=== PATIENT | female | born 1980 | race Caucasian/White ===

== ENCOUNTER → 2021-03-09 13:50 | Outpatient (CLI) | payer BC, SELFPAY ==
[2021-03-16 05:07] LABS: Alternaria tenuis <0.10 kU/L (Class 0); Ash, White <0.10 kU/L (Class 0); Aspergillus fumigatus <0.10 kU/L (Class 0); Bermuda Grass <0.10 kU/L (Class 0); Birch <0.10 kU/L (Class 0); Black Walnut <0.10 kU/L (Class 0); Cat Hair / Dander,Stand 8.43 kU/L (Class IV); Cedar, Mountain <0.10 kU/L (Class 0); Cladosporium herbarum <0.10 kU/L (Class 0); Cockroach, American <0.10 kU/L (Class 0); Cottonwood <0.10 kU/L (Class 0); D farinae Mite 1.82 kU/L (Class III); Dog Epithelia 0.39 kU/L (Class I); Elm, American White <0.10 kU/L (Class 0); Immunoglobulin E 65 IU/mL (6-495); Maple/Box Elder <0.10 kU/L (Class 0); Mulberry, White <0.10 kU/L (Class 0); Oak, White <0.10 kU/L (Class 0); Pecan <0.10 kU/L (Class 0); Penicillium Notatum <0.10 kU/L (Class 0); Pigweed, Rough <0.10 kU/L (Class 0); Ragweed, Short/Common <0.10 kU/L (Class 0); Russian Thistle <0.10 kU/L (Class 0); Sheep Sorrel <0.10 kU/L (Class 0); Sycamore, American <0.10 kU/L (Class 0); Timothy Grass <0.10 kU/L (Class 0)
[2021-03-16 08:01] LABS: Mouse Urine <0.10 kU/L (Class 0)
[2021-03-16 09:13] LABS: Gluten <0.10 kU/L (Class 0); Wheat <0.10 kU/L (Class 0)
== END ==
PROVIDERS: PCP Family Medicine; Referring Provider Otolaryngology; Visit Provider Otolaryngology
DX: T78.40XA Allergy, unspecified, initial encounter (principal)
CPT/HCPCS: 36415; 82785; 86003

== ENCOUNTER 2024-06-23 17:27 | Emergency (ER) | payer OTHER, SELFPAY ==
[2024-06-23 17:28] VITALS: BP 157/107; PULSE 74; RESP 19; TEMP 36.4; O2SAT 97; BMI 18.8
--- NOTE | 2024-06-23 18:08 | EDS_ITS ---
HPI History of Present Illness Chief Complaint: Hypertension Informant: patient Onset/Context/Timing Onset: Weeks Context: Gradual Onset Timing: Intermittent Quality: Dull, aching Location: Neck, left shoulder Worsened by: Nothing Relieved by: Nothing Narrative Narrative: Patient presents with elevated blood pressure, neck pain, and left shoulder pain that has been intermittent for the past 1 to 2 weeks. Patient describes it as dull and aching. Patient states it is over the neck and into her left shoulder. Patient states nothing makes it better and nothing makes it worse. Patient states she is under a lot of stress. Patient states she is going through a divo rce. Patient admits to some mild shortness of breath. Patient denies any nausea or vomiting. Patient states it feels like her ears need to pop. Patient denies any other symptoms. [facility] Medical History HTN (hypertension) Home Medications ?Medication ?Instructions ?Recorded ?Last Taken ?Type propranolol 20 mg tablet 20 mg PO BID 06/23/24 Unknown History Allergy/AdvReac Type Severity Reaction Status Date / Time No Known Allergies Allergy Verified 06/23/24 17:28 Surgical History Previous section Social History household members: children Smoking Status: Never smoker ROS ROS ED Constitutional Constitutional ED: Denies chills or fever(s) Eyes Eyes: Denies blurry vision or change in vision ENT ENT ED: Reports ear pain; Denies rhinorrhea or sore throat Cardiovascular Cardiovascular: Denies chest pain or palpitations Respiratory/Chest Respiratory/Chest: Reports dyspnea; Denies cough Gastrointestinal Gastrointestinal: Denies nausea or vomiting Genitourinary Genitourinary ED: Denies dysuria or hematuria Musculoskeletal Musculoskeletal: Reports neck pain; Denies back pain Integumentary Denies abscess or rash Neurologic Neurologic: Reports headache(s); Denies weakness Allergic/Immunologic Allergic/Immunologic ED: Denies mouth swelling or urticaria EXAM Physical Exam Const Vital Signs: 06/23/24 17:28 06/23/24 17:59 06/23/24 19:28 Temperature 97.6 F L Temperature Source Temporal Pulse Rate 74 77 Respiratory Rate 19 H 11 L Respiratory Effort Normal Non-Labored Respiratory Pattern Normal Blood Pressure 157/107 H 147/97 H Blood Pressure Mean 123 113 Pulse Ox 97 97 Oxygen Delivery Method Room Air Room Air 06/23/24 19:48 Temperature Temperature Source Pulse Rate Respiratory Rate Respiratory Effort Respiratory Pattern Blood Pressure 137/90 H Blood Pressure Mean 105 Pulse Ox Oxygen Delivery Method Positive well nourished and well developed General Appearance ED: well developed and NAD HEENT Reports moist mucous membranes Neck supple and no JVD Resp normal respiratory effort and clear to auscultation bilaterally Cardio regular rate and regular rhythm GI non-tender and non-distended Palpation: soft Extremity normal to inspection Neuro oriented x3, CN's II-XII intact bilaterally and no sensory deficits noted Sensorium / Orientation: alert Motor Exam: strength 5/5 throughout Psych mental status grossly normal MDM MDM MDM Narrative Medical decision making narrative: Differential diagnosis includes cardiac dysrhythmia, cardiac ischemia, anxiety, stress, musculoskeletal pain, and pneumothorax. EKG will be obtained to assess for cardiac dysrhythmia and cardiac ischemia. Chest x-ray will be obtained to assess for pneumothorax and pneumonia. CBC will be obtained to assess for leukocytosis and anemia. Basic metabolic profile will be obtained to assess for electrolyte abnormality and renal function. High-sensitivity troponin will be obtained to assess for cardiac ischemia. Lab Data Attestation: I reviewed the patient's lab results. Lab results narrative: CBC was reviewed and was within normal limits. Basic metabolic profile was reviewed and was within normal limits. High-sensitivity troponin was reviewed and was normal. Labs: Laboratory Results - last 24 hr 06/23/24 17:59 WBC 7.0 RBC 4.47 Hgb 13.2 Hct 41.3 MCV 92.4 MCH 29.5 MCHC 32.0 RDW Std Deviation 43.8 RDW Coeff of Jackie 12.9 Plt Count 370 MPV 9.6 Immature Gran % (Auto) 0.400 Neut % (Auto) 68.4 Lymph % (Auto) 22.0 Cassia % (Auto) 6.9 Eos % (Auto) 1.6 Baso % (Auto) 0.7 Absolute Neuts (auto) 4.8 Absolute Lymphs (auto) 1.53 Nucleated RBC % 0 Sodium 136 Potassium 3.6 Chloride 102 Carbon Dioxide 29.0 Anion Gap 5 BUN 17 Creatinine 0.78 Estim Creat Clear Calc 71.75 Est GFR (MDRD) Af Amer 102 Est GFR (MDRD) Non-Af 84 BUN/Creatinine Ratio 21.7 H Glucose 94 Calcium 9.4 Troponin I High Sens 4 Radiography Chest X-Ray - ED: 2 View, Read by ED Physician, Read by Radiologist and No Acute Disease Diagnostic Testing: Clinical Impression(s) from Imaging Studies Chest X-Ray 06/23/24 18:45 IMPRESSION: No radiographic evidence of acute cardiopulmonary disease. Electronically Signed: Clive Smith DO at 19:08 EDT , [place] and lateral chest x-ray was obtained. There are 2 views. On my independent interpretation, lung lucas are clear. There is normal cardiac silhouette. Bony thorax is normal. There is no acute process noted. Radiologist also interpreted the x-ray and agrees. EKG Initial EKG: Attestation: I personally reviewed and interpreted this EKG as follows: Interpretation: Sinus Rhythm (66) and No Acute Injury Pattern Comments: EKG was obtained. On my independent interpretation, it showed a normal sinus rhythm with a rate of 66. FL interval, QRS interval, and QTc intervals were all normal. [place] was normal. There are no acute ST or T wave changes. Prior EKG tracings: not available for review Prior: No Prior Treatment and Re-Evaluation :: Patient was advised of her findings. Patient was feeling better on reevaluation. Patient was instructed to follow-up with her primary care physician in 5 to 7 days. Patient understood and was agreeable with the plan. All questions were answered. Discharge Plan Triage Chief Complaint: Hypertension ED Provider: Devin Clayton Dx/Rx/DC Orders Clinical Impression: Elevated blood pressure reading, Neck pain Instructions: ED Hypertension, To Be Confirmed Prescriptions: No Action propranolol 20 mg tablet 20 mg PO BID Primary Care Provider: Renetta Taylor NP Referrals: Renetta Taylor NP, [facility] [Primary Care Provider] - 5-7 Days [facility] Doctor,Out of [Non-Staff] - Print Language: Nepali Disposition Disposition: Home, Self Care
--- NOTE | 2024-06-23 18:37 | EKG12_ITS ---
Test Reason : HTN/ARM PAIN Blood Pressure : / mmHG Vent. Rate : 066 BPM Atrial Rate : 066 BPM P-R Int : 156 ms QRS Dur : 076 ms QT Int : 386 ms P-R-T Axes : 072 076 058 degrees QTc Int : 404 ms Normal sinus rhythm Normal ECG Confirmed by Anand Newman ([id number]), photographic editor HÉCTOR ARRIETA ([id number]) on 06/25/2024 9:31:25 AM Referred By: ALFRED/SABRINA Confirmed By:Anand Newman
--- NOTE | 2024-06-23 18:45 | RAD_ITS ---
INDICATION: Chest pain EXAMINATION/TECHNIQUE: X-RAY - XR Chest 2 Views COMPARISON: FINDINGS: LINES/DEVICES: None. LUNGS: No consolidation, edema or effusion. No pneumothorax. MEDIASTINUM AND CARDIOVASCULAR STRUCTURES: Cardiac silhouette not enlarged. Central airways and mediastinal contour are unremarkable. BONES AND SOFT TISSUES: Unremarkable. RAD/Chest PA and Lateral IMPRESSION: No radiographic evidence of acute cardiopulmonary disease. Electronically Signed: Clive Smith DO at 19:08 EDT Reading Location ID and State: [facility] / [place] Tel [phone], Service support ,
[2024-06-23 19:07] LABS: Anion Gap 5 (5-15); BUN 17 mg/dL (7-18); BUN/Creat Ratio 21.7 RATIO (10-20); Calcium,Total 9.4 mg/dL (8.5-10.1); Chloride 102 mmol/L (98-107); Creatinine, Serum 0.78 mg/dL (0.55-1.02); EST Glomerular Filtration Rate 84 mL/min (>60); Est Glom Filt Rate - Afr Amer 102 mL/min (>60); Estimated Creatinine Clearance 71.75 ml/min; Glucose 94 mg/dL (74-106); Potassium 3.6 mmol/L (3.5-5.1); Sodium Level 136 mmol/L (136-145); Troponin-I HS 4 pg/mL (3.0-54.0)
[2024-06-23 19:14] LABS: Absolute Lymphocyte Count 1.53 X10^3/uL (0.83-4.51); Absolute Neutrophil Count 4.8 X10^3/uL (2.0-7.7); Basophil# 0.05 X10^3/uL; Basophil% 0.7 % (0-1); Eosinophil# 0.11 X10^3/uL; Eosinophils% 1.6 % (0-5); Hematocrit 41.3 % (37-47); Hemoglobin 13.2 g/dL (12.0-15.0); Lymphocyte # 1.53 X10^3/ul (0.83-4.51); Mean Corpuscular Hgb 29.5 pg (27.0-32.0); Mean Corpuscular Volume 92.4 fL (81-99); Mean Platelet Vol. 9.6 fl (6.2-12.0); Monocyte# 0.48 X10^3/uL; Monocyte% 6.9 % (0-10); NRBC Flagged by Analyzer 0 % (0-5); Neutrophil # 4.76 X10^3/uL (2.7-7.7); Neutrophil % 68.4 % (47-70); Platelet Count 370 K/mm3 (150-450); RBC Distribution Width CV 12.9 % (11.6-14.6); RBC Distribution Width SD 43.8 fl (35.1-43.9); Red Blood Count 4.47 M/mm3 (4.2-5.4)
[2024-06-23 19:28] VITALS: BP 147/97; PULSE 77; RESP 11; O2SAT 97
[2024-06-23 19:48] VITALS: BP 137/90
[2024-06-23 20:40] VITALS: BP 144/93; PULSE 87; RESP 16; TEMP 36.8; O2SAT 98
== END 2024-06-23 20:49 | disposition home or self-care (01) ==
PROVIDERS: Emergency Provider Emergency Medicine; PCP Registered Nurse; Visit Provider Emergency Medicine
DX: M54.2 Cervicalgia (principal); M25.512 Pain in left shoulder; R06.02 Shortness of breath; I10 Essential (primary) hypertension; Z63.5 Disruption of family by separation and divorce; Z79.899 Other long term (current) drug therapy
CPT/HCPCS: 71046; 80048; 84484; 85025; 93005; 99284; A4216

== ENCOUNTER → 2025-01-28 | Outpatient (CLI) | payer OTHER, SELFPAY ==
--- NOTE | 2025-01-28 14:16 | VDLE_ITS ---
Reason For Study Reason For Study: Pain RIGHT LEFT GSV is normal. CFV is compressible, spontaneous, phasic, competent, CFV is compressible, spontaneous, phasic, competent and demonstrates normal augmentation. and demonstrates normal augmentation. FV is compressible, spontaneous, phasic, competent and demonstrates normal augmentation. POP V is compressible, spontaneous, phasic, competent and demonstrates normal augmentation. T/P Trunk is compressible. PTV is compressible. RT PerV is compressible. Procedure This is a venous duplex using B-mode, color flow and spectral Doppler. Exam performed in department. A preliminary report was called and/or faxed to Lynne James DO. VL/Venous Duplex US, Unilateral Interpretation Summary Deep veins of the right lower extremity are patent and compressible segmentally . There is no evidence of right lower extremity deep vein thrombosis. Valvular competence appears intact within the p roximal deep venous system on the right . The right great saphenous vein appears patent and compressible segmentally. The left common femoral vein is patent and compressible . Ordering Physician: Rajan James Referring Physician: Renetta Taylor NP Performed By: Berenice Domingo RVT
== END | disposition home or self-care (01) ==
LOC: CVS 14:15
PROVIDERS: PCP Registered Nurse; Referring Provider Internal Medicine Gastroenterology; Visit Provider Internal Medicine Gastroenterology
DX: M79.661 Pain in right lower leg (principal); I70.92 Chronic total occlusion of artery of the extremities
CPT/HCPCS: 93971

== ENCOUNTER → 2025-03-31 | Outpatient (CLI) | payer OTHER, SELFPAY ==
[2025-04-03 08:07] LABS: PROGESTERONE 10.4 ng/mL (.)
== END | disposition home or self-care (01) ==
LOC: LAB 16:01
PROVIDERS: PCP Registered Nurse; Referring Provider Specialist; Visit Provider Specialist
DX: E28.8 Other ovarian dysfunction (principal)
CPT/HCPCS: 36415; 82670; 84144; 84403